=== PATIENT | female | born 1990 | race Caucasian/White ===

== ENCOUNTER 2018-01-23 20:37 | Emergency (ER) | payer MEDICAID ==
[2018-01-23 22:10] LABS: ABS Basophils 0.1 10^3/ul (0-0.2); ABS Eosinophils 0.2 10^3/ul (0-0.6); ABS Lymphocytes 2.1 10^3/ul (1.0-4.8); ABS Monocytes 0.7 10^3/ul (0-0.8); ABS Neutrophils 12.5 10^3/ul (1.5-7.7); ABS Nucleated RBC 0 10^3/ul; Eosinophil % 1.3 % (0-6); Hematocrit 37 % (35-47); Hemoglobin 12.1 g/dl (12.0-16.0); Lymphocyte % 13.2 % (25-47); Mean Corpuscular HGB Conc 33 g/dl (31-36); Mean Corpuscular Hemoglobin 27 pg (27-31); Mean Corpuscular Volume 82 fL (80-97); Mean Platelet Volume 8 um3 (7.4-10.4); Nucleated Red Blood Cells % 0; Platelet Count 355 10^3/ul (150-450); Red Blood Count 4.51 10^6/ul (4.0-5.4); Red Cell Distribution Width 15 % (10.5-15); White Blood Count 15.5 10^3/ul (3.5-10.8)
[2018-01-23 22:27] LABS: EGFR Non-African American 90.6 (>60)
[2018-01-23 22:40] LABS: INR 1.02 (0.77-1.02)
[2018-01-23] MEDS ORDERED: NS 0.9% 1000 ML* 1,000 ML IV ONE (23:59)
[2018-01-24 00:39] LABS: ABS Basophils 0.1 10^3/ul (0-0.2); ABS Eosinophils 0.1 10^3/ul (0-0.6); ABS Lymphocytes 2.5 10^3/ul (1.0-4.8); ABS Monocytes 0.7 10^3/ul (0-0.8); ABS Neutrophils 7.4 10^3/ul (1.5-7.7); ABS Nucleated RBC 0 10^3/ul; Eosinophil % 1.2 % (0-6); Hematocrit 29 % (35-47); Hemoglobin 9.7 g/dl (12.0-16.0); Lymphocyte % 22.8 % (25-47); Mean Corpuscular HGB Conc 34 g/dl (31-36); Mean Corpuscular Hemoglobin 28 pg (27-31); Mean Corpuscular Volume 83 fL (80-97); Mean Platelet Volume 8 um3 (7.4-10.4); Nucleated Red Blood Cells % 0; Platelet Count 266 10^3/ul (150-450); Red Blood Count 3.49 10^6/ul (4.0-5.4); Red Cell Distribution Width 15 % (10.5-15); White Blood Count 10.8 10^3/ul (3.5-10.8)
--- NOTE | 2018-01-24 01:28 | ED ---
Progress - Progress Note Progress Note: Pt report known miscarriage. As of yesterday, she started spotting and today started bleeding. Around 22:30, this got heavier and she was passing clots. Around 23:00, she noticed passing a different piece of tissue that felt different. She states her bleeding got even heavier after this, passing clots the size of golf balls followed by clots the size of tennis balls. She has been saturating a pad every 10 minutes. Associated sx are lower abdominal cramping, back pain comparable to labor sx. GEN: mild fatigue, generalized pallor, pleasant and cooperative - older female present w/ her Pelvic exam: when pt lifts her bottom to bridge for bedpan placement, a large area of blood with a clot has saturated her linen; external - blood about inner thighs and clot in vaginal canal; speculum exam - copious amounts of a bloody/ thin liquid pour out of vaginal canal along with stingy clots of blood. Repeated speculum exam in an effort to visualize the os w/o success - more fluids pours out Discussed w/ Dr. Ruiz.
[2018-01-24] MEDS ORDERED: NS 0.9% 1000 ML* 1,000 ML IV ONE ×2 (01:50→03:10)
--- NOTE | 2018-01-24 03:05 | CONSULT ---
Consult Consult: HPI: Pt was dx'd with MAB in the office 2 days ago, 10wks along. She started bleeding 1 day ago and it became heavier last evening so she went to the ED. While in the waiting room she passes a large piece of tissue and started bleeding even more heavily and felt dizzy, almost passing out. +cramping PMH: neg PSH: neg GynHx: , 2 prior NVD, 2 SABs - early Soc Hx: Occ alcohol use, denies tobacco and illicit drug use. PE Gen: pt slightly pale but well-appearing otherwise. Able to move in bed and sit up without feeling dizzy. Pelvic: Large amount of blod clot in vagina. Removed clot and some POC from the cervix. Very minimal active bleeding from the cervix after completion of exam. Sono: gestational sac in the cervix Labs: Hb dropped from 12 on arrival to 9.7. Assessment: Completed MAB. Symptomatic anemia. Plan: hydrate, pt may eat. Try ambulating a little later and if able to do so can be discharged to home. Already has visit scheduled in our office next week.
[2018-01-24 05:25] LABS: ABS Basophils 0.1 10^3/ul (0-0.2); ABS Eosinophils 0.1 10^3/ul (0-0.6); ABS Lymphocytes 2.3 10^3/ul (1.0-4.8); ABS Monocytes 0.6 10^3/ul (0-0.8); ABS Neutrophils 7.6 10^3/ul (1.5-7.7); ABS Nucleated RBC 0 10^3/ul; Eosinophil % 0.6 % (0-6); Hematocrit 25 % (35-47); Hemoglobin 8.2 g/dl (12.0-16.0); Lymphocyte % 21.4 % (25-47); Mean Corpuscular HGB Conc 33 g/dl (31-36); Mean Corpuscular Hemoglobin 27 pg (27-31); Mean Corpuscular Volume 82 fL (80-97); Mean Platelet Volume 8 um3 (7.4-10.4); Nucleated Red Blood Cells % 0; Platelet Count 232 10^3/ul (150-450); Red Cell Distribution Width 14 % (10.5-15); White Blood Count 10.6 10^3/ul (3.5-10.8)
[2018-01-24 06:09] VITALS: BP 105/58
--- NOTE | 2018-01-24 07:57 | RAD ---
HISTORY: Vaginal bleeding in a female COMPARISONS: None TECHNIQUE: Multiple transverse and longitudinal ultrasound images were obtained of the pelvis using grayscale, color flow, spectral and M-mode sonographic imaging. FINDINGS: UTERUS: The uterus is normal in shape, size, contour, and echotexture. GESTATION: There is questionable identification of a pole measuring 5 mm in length. No cardiac activity or movement is seen. A yolk sac is visualized measuring 4 mm in diameter. There is a gestational sac seen at the level of the lower uterine segment/cervix. The mean gestational sac diameter measures 2.1 centimeters yielding a gestational age of 7 weeks and 1 day. CUL-DE-SAC: There is no free fluid within the cul-de-sac. RIGHT OVARY: The right ovary measures 3.5 x 1.5 x 3.4 cm. LEFT OVARY: The left ovary measures 2.8 x 3.1 x 1.7 cm. IMPRESSION: A gestational sac with a mean diameter of 2.1 cm corresponding to a gestational age of 7 weeks and 1 day, is seen to the level of the lower uterine segment/cervix. A 5 mm length pole is identified but no movement or cardiac activity is identified. Sonographic findings indicate either spontaneous or ectopic . Recommend close clinical and sonographic follow-up including trending beta hCG.
--- NOTE | 2018-01-24 16:16 | ED ---
Jose Truong Sixian, scribed for Dino Ruiz MD on 01/24/18 at 0008 . Abdominal Pain/Female - HPI Summary HPI Summary: This patient is a 27 year old F presenting to ED with a chief complaint of vaginal bleeding for 1 day ago. Pt states vaginal bleeding started as light spotting but has progressed to heavy bleeding soaki 1 pad per hour. Pt states she was seen by cesar in clinic and found to by miscarriage by U/S. Pt states she is approximately 6 weeks . Pt states today she began to have increased generalized weakness and lightheadedness. Noted is A5. Patient states mild lower abdominal cramping. Pt with near syncopal episode in the ED lobby while waiting to be evaluated. - History of Current Complaint Chief Complaint: EDVaginalBleeding Stated Complaint: VAGINAL BLEEDING Time Seen by Provider: 01/23/18 23:53 Hx Obtained From: Patient Onset/Duration: Sudden Onset, Lasting Days, Still Present Timing: Days Severity Currently: Moderate Pain Intensity: 6 Pain Scale Used: 0-10 Numeric Aggravating Factor(s): Nothing Alleviating Factor(s): Nothing Associated Signs and Symptoms: Positive: Vaginal Bleeding Allergies/Adverse Reactions: Allergies Allergy/AdvReac Type Severity Reaction Status Date / Time No Known Allergies Allergy Verified 01/23/18 23:50 PMH/Surg Hx/FS Hx/Imm Hx Endocrine/Hematology History: Denies: Hx Diabetes, Hx Thyroid Disease Cardiovascular History: Denies: Hx Congestive Heart Failure, Hx Deep Vein Thrombosis, Hx Hypertension , Hx Myocardial Infarction, Hx Pacemaker/ICD Respiratory History: Denies: Hx Asthma, Hx Chronic Obstructive Pulmonary Disease (COPD), Hx Lung Cancer, Hx Pneumonia, Hx Pulmonary Embolism GI History: Denies: Hx Gall Bladder Disease, Hx Gastrointestinal Bleed, Hx Ulcer, Hx Urosepsis History: Denies: Hx Kidney Stones, Hx Renal Disease Neurological History: Denies: Hx Dementia, Hx Migraine, Hx Seizures, Hx Transient Ischemic Attacks (TIA) Psychiatric History: Denies: Hx Anxiety, Hx Depression, Hx Schizophrenia, Hx Bipolar Disorder - Immunization History Date of Tetanus Vaccine: unk Date of Influenza Vaccine: none Infectious Disease History: No Infectious Disease History: Denies: Hx Hepatitis, Hx Human Immunodeficiency Virus (HIV), Traveled Outside the [place] in Last 30 Days - Family History Known Family History: Positive: Other - Kidney stones (father) - Social History Alcohol Use: Rare Hx Substance Use: No Substance Use Type: Reports: None Hx Tobacco Use: No Smoking Status (MU): Never Smoked Tobacco Review of Systems Negative: Fever Positive: Abdominal Pain - intermittent Genitourinary: Other - vaginal bleeding All Other Systems Reviewed And Are Negative: Yes Physical Exam - Summary Physical Exam Summary: Appearance: Well-appearing, no distress, Skin: Warm, dry, pale Head: Normal Head/Face inspection Eyes: no conjunctival pallor ENT: Normal inspection Neck: Supple, . Respiratory: Lungs clear, Normal breath sounds, no respiratory distress Cardio: RRR, No murmur, pulses normal, brisk capillary refill Abdomen: soft, nontender, no guarding, no rebound Bowel sounds: present Musculoskeletal: Strength Intact/ ROM intact. No calf tenderness. No edema. Neuro: Alert, muscle tone normal, facial symmetry, speech normal, sensory/motor intact Psychological: Normal Triage Information Reviewed: Yes Vital Signs On Initial Exam: Initial Vitals Temp Pulse Resp BP Pulse Ox 98.5 F 95 18 115/73 100 01/23/18 21:01 01/23/18 21:01 01/23/18 21:01 01/23/18 21:01 01/23/18 21:01 Vital Signs Reviewed: Yes Pelvic Exam: Positive: external exam normal, active bleeding - mild, blood - large dark blood and clots on vaginal vault Diagnostics - Vital Signs Vital Signs Temp Pulse Resp BP Pulse Ox 01/23/18 23:49 16 99/72 01/23/18 22:58 98.2 F 102/72 100 01/23/18 21:01 98.5 F 95 18 115/73 100 - Laboratory Lab Results: Lab Results 01/23/18 01/23/18 01/23/18 Range/Units 21:57 21:57 21:57 WBC 15.5 H (3.5-10.8) 10^3/ul RBC 4.51 (4.0-5.4) 10^6/ul Hgb 12.1 (12.0-16.0) g/dl Hct 37 (35-47) % MCV 82 (80-97) fL MCH 27 (27-31) pg MCHC 33 (31-36) g/dl RDW 15 (10.5-15) % Plt Count 355 (150-450) 10^3/ul MPV 8 (7.4-10.4) um3 Neut % (Auto) 80.5 (38-83) % Lymph % (Auto) 13.2 L (25-47) % [place] % (Auto) 4.5 (0-7) % Eos % (Auto) 1.3 (0-6) % Baso % (Auto) 0.5 (0-2) % Absolute Neuts (auto) 12.5 H (1.5-7.7) 10^3/ul Absolute Lymphs (auto) 2.1 (1.0-4.8) 10^3/ul Absolute Monos (auto) 0.7 (0-0.8) 10^3/ul Absolute Eos (auto) 0.2 (0-0.6) 10^3/ul Absolute Basos (auto) 0.1 (0-0.2) 10^3/ul Absolute Nucleated RBC 0 10^3/ul Nucleated RBC % 0 INR (Anticoag Therapy) 1.02 (0.77-1.02) APTT 29.1 (26.0-36.3) seconds Sodium 135 (133-145) mmol/L Potassium 3.9 (3.5-5.0) mmol/L Chloride 103 (101-111) mmol/L Carbon Dioxide 26 (22-32) mmol/L Anion Gap 6 (2-11) mmol/L BUN 14 (6-24) mg/dL Creatinine 0.77 (0.51-0.95) mg/dL Est GFR ( Amer) 116.5 (>60) Est GFR (Non-Af Amer) 90.6 (>60) BUN/Creatinine Ratio 18.2 (8-20) Glucose 115 H (70-100) mg/dL Calcium 9.5 (8.6-10.3) mg/dL Total Bilirubin 0.30 (0.2-1.0) mg/dL AST 15 (13-39) U/L ALT 12 (7-52) U/L Alkaline Phosphatase 55 (34-104) U/L Total Protein 7.7 (6.4-8.9) g/dL Albumin 4.1 (3.2-5.2) g/dL Globulin 3.6 (2-4) g/dL Albumin/Globulin Ratio 1.1 (1-3) Beta HCG, Quant 36276.00 mIU/mL Blood Type Antibody Screen 01/23/18 Range/Units 21:57 WBC (3.5-10.8) 10^3/ul RBC (4.0-5.4) 10^6/ul Hgb (12.0-16.0) g/dl Hct (35-47) % MCV (80-97) fL MCH (27-31) pg MCHC (31-36) g/dl RDW (10.5-15) % Plt Count (150-450) 10^3/ul MPV (7.4-10.4) um3 Neut % (Auto) (38-83) % Lymph % (Auto) (25-47) % [place] % (Auto) (0-7) % Eos % (Auto) (0-6) % Baso % (Auto) (0-2) % Absolute Neuts (auto) (1.5-7.7) 10^3/ul Absolute Lymphs (auto) (1.0-4.8) 10^3/ul Absolute Monos (auto) (0-0.8) 10^3/ul Absolute Eos (auto) (0-0.6) 10^3/ul Absolute Basos (auto) (0-0.2) 10^3/ul Absolute Nucleated RBC 10^3/ul Nucleated RBC % INR (Anticoag Therapy) (0.77-1.02) APTT (26.0-36.3) seconds Sodium (133-145) mmol/L Potassium (3.5-5.0) mmol/L Chloride (101-111) mmol/L Carbon Dioxide (22-32) mmol/L Anion Gap (2-11) mmol/L BUN (6-24) mg/dL Creatinine (0.51-0.95) mg/dL Est GFR ( Amer) (>60) Est GFR (Non-Af Amer) (>60) BUN/Creatinine Ratio (8-20) Glucose (70-100) mg/dL Calcium (8.6-10.3) mg/dL Total Bilirubin (0.2-1.0) mg/dL AST (13-39) U/L ALT (7-52) U/L Alkaline Phosphatase (34-104) U/L Total Protein (6.4-8.9) g/dL Albumin (3.2-5.2) g/dL Globulin (2-4) g/dL Albumin/Globulin Ratio (1-3) Beta HCG, Quant mIU/mL Blood Type A Positive Antibody Screen Negative Result Diagrams: 18 05:14 01/23/18 21:57 Lab Statement: Any lab studies that have been ordered have been reviewed, and results considered in the medical decision making process. - EKG 2334 Cardiac Rate: NL EKG Rhythm: Sinus Rhythm - 84 BPM EKG Interpretation: Normal intervals, axis. No ST, T wave changes. - Additional Comments Diagnostic Additional Comments: US Preg transvaginal reveals demise. Gestational sac within the cervix suggesting an in progress. ED physician has reviewed this radiology report. Re-Evaluation - Re-Evaluation First Eval Re-Evaluation Time: 03:43 Change: Improved Comment: ptg hemodynamically stable. Pt seen and examined by Dr. Saini (OB/ MANUFACTURING SUPERVISOR) ay bedside. Vaginal vault cleared at bedside. No heavy or active bleeding from cervix. Second Eval Re-Evaluation Time: 05:36 Change: Improved - pt awake and alert; pt HGB stable; pt hemodynamically stable. pt tolerating po without difficulty. will continue to monitor. Third Eval Re-Evaluation Time: 06:01 Change: Improved - Pt able to ambulate in the ED without lightheadedness or dizziness. Pt with no active vaginal bleeding. pt hemodynamically stable Abdominal Pain Fem Course/Dx - Course Course Of Treatment: Pt symptomaticall improved with rest and IVF. Vaginal bleeding resolved. pt evaluated by RN L AND D with plan for outpt f/u. - Diagnoses Differential Diagnosis: Positive: Ectopic , Ovarian Cyst, Pelvic Inflammatory Disease, , Other - threatened ab, incomplete ab Provider Diagnoses: Spontaneous complicated by delayed or excessive hemorrhage - Provider Notifications Discussed Care Of Patient With: Sejal Saini Time Discussed With Above Provider: 01:45 Instructed by Provider To: Will See In ED Discharge - Discharge Plan Condition: Improved Disposition: HOME Patient Education Materials: Miscarriage (ED) Referrals: Sejal Saini MD [Medical Doctor] - (Please follow up in the RN L AND D clinic as scheduled.) Additional Instructions: RETURN TO THE EMERGENCY DEPARTMENT FOR CHANGING OR WORSENING SYMPTOMS. The documentation as recorded by the scribe Garcia,Sixian accurately reflects the service I personally performed and the decisions made by , Dino Ruiz MD.
== END 2018-01-24 06:23 | disposition home or self-care (01) ==
LOC: ED 20:37
DX: O03.6 Delayed or excessive hemorrhage following complete or unspecified spontaneous abortion (principal); O90.81 Anemia of the puerperium
CPT/HCPCS: 36415; 76817; 80053; 84702; 85025; 85610; 85730; 86850; 86900; 86901; 93005; 96360; 99283